=== PATIENT | male | born 1970 | race Caucasian/White ===

== ENCOUNTER 2017-09-02 10:23 | Emergency (ER) | payer SELFPAY ==
[~2017-09-02] VITALS: Ht 182.9 cm; Wt 85.0 kg
[~2017-09-02 10:23] MED LIST: IBUP-238 PO; MEDR4PAK3 PO
[2017-09-02 10:27] VITALS: BP 138/83; PULSE 80; RESP 17; TEMP 97.6; O2SAT 99
[2017-09-02] MEDS ORDERED: SODIUM CHLOR 0.9% 1000 ML INJ 1,000 ML IV ONE (10:34)
[2017-09-02 10:38] VITALS: BP 156/79; PULSE 78; RESP 15; O2SAT 99
--- NOTE | 2017-09-02 10:38 | PD ---
HPI Chief Complaint: Dizziness Time Seen by Provider: 10:34 Travel History International Travel<30 days: No Contact w/Intl Traveler<30days: No Traveled to known affect area: No History of Present Illness HPI 47-year-old male patient with history of no significant past medical issues, presents to the ER today because his girlfriend states that he has been vomiting last night, was found on the ground, extremely dizzy, apparently he states that he is having trouble standing up. He complains of mild headache. He denies any abdominal pain but states that he did have a few episodes of diarrhea. He denies any black stools. He denies any fevers or any other issues. Worse with standing up according to the patient. Modifying Factors: Symptoms worsen with standing up Associated Signs & Symptoms: Nausea, vomiting, diarrhea, dizziness Risk Factors: None PFSH Past Medical History Diminished Hearing: No Past Surgical History Tonsillectomy: Yes (throat surgery as child) Social History Alcohol Use: Yes (1-2 DRINKS DAILY) Tobacco Use: No Substance Use: No Allergies-Medications (Allergen,Severity, Reaction): Coded Allergies: No Known Allergies (Verified Adverse Reaction, Unknown, 09/02/17) Reported Meds & Prescriptions Reported Meds & Active Scripts Active No Active Prescriptions or Reported Medications Review of Systems Except as stated in HPI: all other systems reviewed are Neg Physical Exam Narrative GENERAL: Well-developed middle age white male patient currently in moderate distress. Awake, mildly lethargic, oriented 3. SKIN: Focused skin assessment warm/dry. HEAD: Atraumatic. Normocephalic. EYES: Pupils equal and round. No scleral icterus. No injection or drainage. Extraocular movements are intact. There is a mild nystagmus. ENT: No nasal bleeding or discharge. Mucous membranes pink and moist. NECK: Trachea midline. No JVD. CARDIOVASCULAR: Regular rate and rhythm. No murmur appreciated. RESPIRATORY: No accessory muscle use. Clear to auscultation. Breath sounds equal bilaterally. GASTROINTESTINAL: Abdomen soft, non-tender, nondistended. Hepatic and splenic margins not palpable. MUSCULOSKELETAL: No obvious deformities. No clubbing. No cyanosis. No edema. NEUROLOGICAL: Awake and lethargic. No obvious cranial nerve deficits. Motor grossly within normal limits. Normal speech. No pronator drift. PSYCHIATRIC: Appropriate mood and affect; insight and judgment normal. Data Data Last Documented VS Vital Signs Date Time Temp Pulse Resp B/P (MAP) Pulse Ox O2 Delivery O2 Flow Rate FiO2 09/02/17 10:38 78 15 156/79 (104) 99 09/02/17 10:27 97.6 Room Air Orders Orders Electrocardiogram (09/02/17 10:34) Complete Blood Count With Diff (09/02/17 10:34) Comprehensive Metabolic Panel (09/02/17 10:34) Magnesium (Mg) (09/02/17 10:34) Act Partial Throm Time (Ptt) (09/02/17 10:34) Prothrombin Time / Inr (Pt) (09/02/17 10:34) Urinalysis - C+S If Indicated (09/02/17 10:34) Ct Brain W/O Iv Contrast(Rout) (09/02/17 10:34) Blood Glucose (09/02/17 10:34) Ecg Monitoring (09/02/17 10:34) Iv Access Insert/Monitor (09/02/17 10:34) Oximetry (09/02/17 10:34) Meclizine (Antivert) (09/02/17 10:45) Ondansetron Inj (Zofran Inj) (09/02/17 10:45) Sodium Chloride 0.9% Flush (Ns Flush) (09/02/17 10:45) Sodium Chlor 0.9% 1000 Ml Inj (Ns 1000 M (09/02/17 10:34) Orthostatic Vital Signs (09/02/17 10:34) Drug Screen, Random Urine (09/02/17 10:38) Alcohol (Ethanol) (09/02/17 10:38) Labs Laboratory Tests Test 09/02/17 10:45 09/02/17 12:05 White Blood Count 10.2 TH/MM3 Red Blood Count 4.91 MIL/MM3 Hemoglobin 15.7 GM/DL Hematocrit 46.2 % Mean Corpuscular Volume 94.3 FL Mean Corpuscular Hemoglobin 32.0 PG Mean Corpuscular Hemoglobin Concent 33.9 % Red Cell Distribution Width 13.2 % Platelet Count 219 TH/MM3 Mean Platelet Volume 8.6 FL Neutrophils (%) (Auto) 86.1 % Lymphocytes (%) (Auto) 10.9 % Monocytes (%) (Auto) 2.7 % Eosinophils (%) (Auto) 0.1 % Basophils (%) (Auto) 0.2 % Neutrophils # (Auto) 8.7 TH/MM3 Lymphocytes # (Auto) 1.1 TH/MM3 Monocytes # (Auto) 0.3 TH/MM3 Eosinophils # (Auto) 0.0 TH/MM3 Basophils # (Auto) 0.0 TH/MM3 CBC Comment DIFF FINAL Differential Comment Prothrombin Time 10.9 SEC Prothromb Time International Ratio 1.0 RATIO Activated Partial Thromboplast Time 22.7 SEC Blood Urea Nitrogen 16 MG/DL Creatinine 1.04 MG/DL Random Glucose 147 MG/DL Total Protein 8.8 GM/DL Albumin 4.6 GM/DL Calcium Level 9.8 MG/DL Magnesium Level 1.8 MG/DL Alkaline Phosphatase 68 U/L Aspartate Amino Transf (AST/SGOT) 33 U/L Alanine Aminotransferase (ALT/SGPT) 56 U/L Total Bilirubin 0.7 MG/DL Sodium Level 137 MEQ/L Potassium Level 3.8 MEQ/L Chloride Level 103 MEQ/L Carbon Dioxide Level 26.1 MEQ/L Anion Gap 8 MEQ/L Estimat Glomerular Filtration Rate 77 ML/MIN Urine Color YELLOW Urine Turbidity CLEAR Urine pH 8.5 Urine Specific [place] 1.022 Urine Protein 30 mg/dL Urine Glucose (UA) NEG mg/dL Urine Ketones NEG mg/dL Urine Occult Blood NEG Urine Nitrite NEG Urine Bilirubin NEG Urine Urobilinogen LESS THAN 2.0 MG/DL Urine Leukocyte Esterase TRACE Urine RBC 1 /hpf Urine WBC 1 /hpf Urine Mucus FEW /lpf Microscopic Urinalysis Comment CULT NOT INDICATED Urine Opiates Screen NEG Urine Barbiturates Screen NEG Urine Amphetamines Screen NEG Urine Benzodiazepines Screen NEG Urine Cocaine Screen NEG Urine Cannabinoids Screen NEG MDM Medical Decision Making Medical Screen Exam Complete: Yes Emergency Medical Condition: Yes Medical Record Reviewed: Yes Interpretation(s) EKG shows NSR, no ST elevation or depression, and no arrhythmias. No significant T-wave inversions. Laboratory Tests Test 09/02/17 10:45 09/02/17 12:05 Neutrophils (%) (Auto) 86.1 % (16.0-70.0) Neutrophils # (Auto) 8.7 TH/MM3 (1.8-7.7) Activated Partial Thromboplast Time 22.7 SEC (24.3-30.1) Random Glucose 147 MG/DL (74-106) Total Protein 8.8 GM/DL (6.4-8.2) Estimat Glomerular Filtration Rate 77 ML/MIN (>89) Urine Protein 30 mg/dL (NEG-TRACE) Urine Leukocyte Esterase TRACE (NEG) Urine Mucus FEW /lpf (OCC) Last [address] 09/02/17 1034 Signed Impressions: Service Date/Time: Saturday, September 02, 2017 10:44 - CONCLUSION: 1. No chronic sinusitis in the ethmoid air cells bilaterally. 2. Otherwise negative Sco.justine Herman MD Differential Diagnosis Dizziness, nausea, vomiting, diarrhea, mild disorientation: Alcohol intoxication versus he hydration versus metabolic issues versus viral syndrome versus sepsis versus vertigo versus CVA versus acute intracranial processes Narrative Course CT did not show any signs of acute intracranial processes. Patient has no focal neurological deficits and symptoms are consistent with vertigo. However, he was in significant distress and IV fluids, Zofran, and meclizine was given in the ER. After an hour, he was reevaluated and he feels much improved, able to give me more history. He states that there is room spinning, he states that he feels like things are just moving slowly. He feels that it worsens when he shifts positions. He has not had any further vomiting episodes in the ER. Abdomen is benign and I do not suspect an acute intra-abdominal process. Lab work was otherwise unremarkable. At this point, my plan would be to release him for further treatment for vertigo and have him follow-up with primary care physician and ENT. Return for worsening in symptoms as needed. The plan has discussed with him and he states understanding. Diagnosis Primary Impression: Dizziness Additional Impression: Vertigo Med/Other Pt SpecificInfo: Prescription(s) given Scripts Meclizine (Meclizine) 25 Mg Tab 25 MG PO TID Y for VERTIGO, #20 TAB 0 Refills Prov: Karlene Vigil MD 09/02/17 Ondansetron Odt (Zofran Odt) 4 Mg Tab 4 MG SL Q6HR Y for Nausea/Vomiting, #7 TAB 0 Refills Prov: Karlene Vigil MD 09/02/17 Disposition: 01 DISCHARGE HOME Condition: Stable Karlene Vigil MD Sep 02, 2017 10:38
[2017-09-02] MEDS ORDERED: SODIUM CHLORIDE 0.9% FLUSH 10 ML FLUSH IVF PRN (10:45)
[2017-09-02] MEDS ORDERED: MECLIZINE HCL 25 MG TAB PO ONE (10:45)
[2017-09-02] MEDS ORDERED: ONDANSETRON HCL 4 MG/2 ML VIAL IVP ONE (10:45)
[2017-09-02 10:57] LABS: AUTOMATED NEUTROPHIL # 8.7 TH/MM3 (1.8-7.7); BASOPHIL % 0.2 % (0.0-2.0); EOSINOPHIL % 0.1 % (0.0-4.0); HEMATOCRIT 46.2 % (39.0-51.0); HEMO FLAGS DIFF FINAL; LYMPH % 10.9 % (9.0-44.0); LYMPHOCYTE # 1.1 TH/MM3 (1.0-4.8); MEAN CELL VOLUME 94.3 FL (80.0-100.0); MEAN CORPUSCULAR HGB CONC 33.9 % (32.0-36.0); MONO % 2.7 % (0.0-8.0); NEUT % 86.1 % (16.0-70.0); PLATELET COUNT 219 TH/MM3 (150-450); RED BLOOD COUNT 4.91 MIL/MM3 (4.50-5.90); RED CELL DISTRIBUTION WIDTH 13.2 % (11.6-17.2); WHITE BLOOD COUNT 10.2 TH/MM3 (4.0-11.0)
[2017-09-02 11:07] LABS: PROTHROMBIN TIME - PATIENT 10.9 SEC (9.8-11.6)
[2017-09-02 11:08] LABS: APTT (PATIENT) 22.7 SEC (24.3-30.1)
[2017-09-02 11:13] LABS: ALKALINE PHOSPHATASE 68 U/L (45-117); TOTAL BILIRUBIN ADULT 0.7 MG/DL (0.2-1.0)
[2017-09-02 11:16] LABS: ALT (GPT) 56 U/L (12-78); ANION GAP 8 MEQ/L (5-15); AST (GOT) 33 U/L (15-37); BICARBONATE 26.1 MEQ/L (21.0-32.0); BLOOD UREA NITROGEN 16 MG/DL (7-18); CHLORIDE 103 MEQ/L (98-107); GLOMERULAR FILTRATION RATE 77 ML/MIN (>89); MAGNESIUM 1.8 MG/DL (1.5-2.5); POTASSIUM 3.8 MEQ/L (3.5-5.1); SODIUM (NA) 137 MEQ/L (136-145)
--- NOTE | 2017-09-02 11:19 | RADRPT ---
EXAM DATE/TIME: 09/02/2017 10:44 [facility] COMPARISON: No previous studies available for comparison. INDICATIONS : Dizziness. RADIATION DOSE: 56.35 CTDIvol (mGy) MEDICAL HISTORY : None SURGICAL HISTORY : None. ENCOUNTER: Initial ACUITY: 1 day PAIN SCALE: 0/10 LOCATION: cranial TECHNIQUE: Multiple contiguous axial images were obtained of the head. Using automated exposure control and adj ustment of the mA and/or kV according to patient size, radiation dose was kept as low as reasonably a chievable to obtain optimal diagnostic quality images. DICOM format image data is available electro nically for review and comparison. FINDINGS: CEREBRUM: The ventricles are normal for age. No evidence of midline shift, mass lesion, hemorrhage or acute in farction. No extra-axial fluid collections are seen. POSTERIOR FOSSA: The cerebellum and brainstem are intact. The 4th ventricle is midline. The cerebellopontine angle i s unremarkable. EXTRACRANIAL: The visualized portion of the orbits is intact. Mild mucoperiosteal thickening in the ethmoid air mar ls bilaterally. SKULL: The calvaria is intact. No evidence of skull fracture. CONCLUSION: 1. No chronic sinusitis in the ethmoid air cells bilaterally. 2. Otherwise negative Sco.justine Herman MD on September 02, 2017 at 11:15 Board Certified Radiologist. This report was verified electronically.
[2017-09-02 12:58] LABS: BLOOD, URINE NEG (NEG); COMMENT (UR) CULT NOT INDICATED; CULTURE IF INDICATED CULT NOT INDICATED; GLUCOSE,URINE NEG (NEG); KETONE, URINE NEG (NEG); MUCUS URINE FEW /lpf (OCC); NITRITE,URINE NEG (NEG); PH, URINE 8.5 (5.0-8.5); URINE COLOR YELLOW (YELLW/STRAW)
[2017-09-02] MEDS ORDERED: ZOFR4TAB3 SL (13:13)
[2017-09-02] MEDS ORDERED: MECL-62 PO (13:13)
[2017-09-02 13:18] VITALS: BP 169/96; PULSE 81; RESP 16; O2SAT 98
--- NOTE | 2017-09-02 14:46 | EKG ---
Date Performed: 09/02/2017 Time Performed: 11:06:03 PTAGE: 47 years EKG: Sinus rhythm NORMAL ECG Compared to prior electrocardiogram, rate has increased . PREVIOUS TRACING : 10/24/2007 07.22 DOCTOR: Konstantin Lobato Interpretating Date/Time 09/02/2017 14:45:47
== END 2017-09-02 13:27 | disposition home or self-care (01) ==
LOC: NEPE 10:23
DX: R42 Dizziness and giddiness (principal); R51 Headache; R19.7 Diarrhea, unspecified
CPT/HCPCS: 70450; 80053; 80307; 81001; 83735; 85025; 85610; 85730; 93005; 96361; 96374; 99285; J2405; J7030